=== PATIENT | male | born 1995 | race Hispanic/Latino ===

== ENCOUNTER → 2017-10-30 | Outpatient (CLI) | payer BC ==
--- NOTE | 2017-10-30 12:07 | Diagnostic Imaging Report ---
PROCEDURE: Frontal and lateral views of the chest. COMPARISON: None. INDICATIONS: TB SCREENING, COUGH FINDINGS: Lines/tubes: None. Lungs: The lungs are well inflated and clear. There is no evidence of pneumonia or pulmonary edema. Pleura: There is no pleural effusion or pneumothorax. Heart and mediastinum: The heart and the mediastinum are normal. Bones: No acute bony abnormality. IMPRESSION: No acute radiographic abnormality. Dictated by: Maurilio Savage M.D. on 10/30/2017 at 12:07 Electronically approved by: Maurilio Savage M.D. on 10/30/2017 at 12:07
== END ==
LOC: RAD 10:02
PROVIDERS: ATTEND Family Medicine
DX: Z11.1 Encounter for screening for respiratory tuberculosis (principal); R05 Cough
CPT/HCPCS: 71046

== ENCOUNTER 2018-10-12 09:02 | Emergency (ER) | payer BC ==
[~2018-10-12] VITALS: Ht 170.2 cm; Wt 74.8 kg
--- OUTSIDE RECORDS SUMMARY | 2018-10-12 09:04 | XMS REPORT ---
Author Author [facility] Address Unknown Phone Unavailable Care Team Providers Care Ultrasound Spec Name Role Phone ZORAIDA GUERRERO Unavailable Unavailable Problems This patient has no known problems. Allergies, Adverse Reactions, Alerts This patient has no known allergies or adverse reactions. Medications This patient has no known medications. Results Test Description Test Time Test Comments Text Results Atomic Results Result Comments CHEST [address] [address] Patient Name: NARDA THAKUR MR #: [id number] : 1995 Age/Sex: 22/M Req #: [id number] Adm Physician: Ordered by: ZORAIDA GUERRERO M.D. Report #: [id number] Location: [facility] Room/Bed: Procedure: [id number] DX/CHEST 2 VIEWS Exam Date: 10/30/17 Exam Time: 1045 REPORT STATUS: Signed PROCEDURE: Frontal and lateral views of the chest. COMPARISON: None. INDICATIONS: TB SCREENING, COUGH FINDINGS: Lines/tubes: None. Lungs: The lungs are well inflated and clear. There is no evidence of pneumonia or pulmonary edema. Pleura: There is no pleural effusion or pneumothorax. Heart and mediastinum: The heart and the mediastinum are normal. Bones: No acute bony abnormality. IMPRESSION: No acute radiographic abnormality. Dictated by: Cornelio Mcclure M.D. on 10/30/2017 at 12:07 Electronically approved by: Cornelio Mcclure M.D. on 10/30/2017 at 12:07 Dictated By: CORNELIO MCCLURE MD 06 Transcribed By: AYAAN on 10/30/171206 COPY TO: ZORAIDA GUERRERO M.D.
[2018-10-12 09:36] VITALS: BP 137/73
[2018-10-12] MEDS ORDERED: ZITHROMAX250 MG PO (09:39)
[2018-10-12] MEDS ORDERED: DEXAMETHASONE SOD PHOS 10 MG/1 ML VIAL IM ONE (09:45)
== END 2018-10-12 10:00 | disposition home or self-care (01) ==
LOC: FSED 09:02
DX: R05 Cough (principal); J02.0 Streptococcal pharyngitis
CPT/HCPCS: 83518; 99283; J1100